=== PATIENT | female | born 1945 | race Two or more races ===

== ENCOUNTER 2019-08-22 10:04 | Outpatient (CLI) | payer OTHER | END 2019-08-22 10:17 | disposition home or self-care (01) | LOC: RAD 10:04 → MAMO-SONO 10:15 → RAD 10:17 | DX: Z12.31 Encounter for screening mammogram for malignant neoplasm of breast (principal); M89.8X8 Other specified disorders of bone, other site; E44.1 Mild protein-calorie malnutrition; M62.830 Muscle spasm of back; E11.51 Type 2 diabetes mellitus with diabetic peripheral angiopathy without gangrene; N18.2 Chronic kidney disease, stage 2 (mild); G63 Polyneuropathy in diseases classified elsewhere; J44.9 Chronic obstructive pulmonary disease, unspecified; E78.2 Mixed hyperlipidemia; I45.19 Other right bundle-branch block; I42.0 Dilated cardiomyopathy; R39.81 Functional urinary incontinence; N81.11 Cystocele, midline; F39 Unspecified mood [affective] disorder; F15.20 Other stimulant dependence, uncomplicated; Z68.27 Body mass index [BMI] 27.0-27.9, adult; N20.0 Calculus of kidney ==